=== PATIENT | male | born 1970 | race Caucasian/White ===

== ENCOUNTER 2018-09-23 21:37 | Emergency (ER) | payer MEDICAID, MEDICARE, OTHER ==
[~2018-09-23] VITALS: Ht 175.3 cm; Wt 78.9 kg
[2018-09-23] MEDS ORDERED: NS 1000ML 1,000 ML STA (21:46)
--- NOTE | 2018-09-23 21:47 | ER.PDOC ---
General Chief Complaint: Requesting Medical Care Stated Complaint: MANIC TRAVEL OUT OF US: No Time seen by MD: 21:34 Source: patient, EMS Exam Limitations: intoxication History of Present Illness Initial Comments 48 YO MALE BROUGHT IN BY EMS STATING HE HAS BIPOLAR DISORDER AND HAS NOT TAKEN KLONOPIN FOR SEVERAL MONTHS. HE STATES DRINKING 7 BOTTLES OF BEAR TODAY. HE DENIES DRUG USE. PATIENT DENIES CHEST PAIN, ABDOMINAL PAIN, SHORTNESS OF BREATH, HEADACHE. HE DENIES SUICIDAL OR HOMICIDAL IDEATION. PATIENT IS HOMELESS. PATIENT DENIES HALLUCINATION AND HE IS NOT AGITATED. Timing/Duration: 4-6 hours Severity: moderate Associated Symptoms: denies symptoms Allergies: Coded Allergies: Sulfa (Sulfonamide Antibiotics) (Verified Allergy, Unknown, 09/23/18) Past Medical History Medical History: other (BIPOLAR DISORDER) Surgical History: no surgical history Family History Significant Family History: no pertinent family hx Social History Smoking: cigarettes Alcohol Use: heavy Drug Use: none Review of Systems Constitutional: denies chills, denies fever EENTM: denies blurred vision Respiratory: denies cough, denies shortness of breath Cardiovascular: denies palpitations Gastrointestinal: denies diarrhea, denies nausea Genitourinary: denies dysuria, denies hematuria Musculoskeletal: denies back pain Skin: denies change in color Psychiatric/Neurological: denies anxiety, denies headache, denies tremors Hematologic/Lymphatic: no symptoms reported Immunological/Allergic: no symptoms reported Physical Exam General Appearance: Other (SMELL OF ALCOHOL, CONSCIOUS AND ALERT.) EENT: eyes nml inspection, nml ENT inspection Neck: Non-Tender, Full Range of Motion, Supple Respiratory: chest non-tender, lungs clear, normal breath sounds, no respiratory distress CVS: reg rate & rhythm, no murmur Gastrointestinal: Normal Bowel Sounds, No Organomegaly, No Pulsatile Mass, Non Tender, Soft Back: Normal Inspection, No CVA Tenderness Extremities: Normal Range of Motion Neurologic/Psychiatric: Alert, Oriented x 3, Other (SMELL OF ALCOHOL) Skin: Normal Color Results/Orders Results/Orders Orders - MIGDALIA COSTA MD Ekg-Routine (09/23/18 21:44) Cbc With Auto Diff (09/23/18 21:44) Comprehensive Metabolic Panel (09/23/18 21:44) Urinalysis (09/23/18 21:44) Ethanol (09/23/18 21:44) Drug Screen Medical(Ml) (09/23/18 21:44) 0.9 % Sodium Chloride (Ns 1000ml) (09/23/18 21:46) Vital Signs Date Time Temp Pulse Resp B/P (MAP) Pulse Ox O2 Delivery O2 Flow Rate FiO2 09/23/18 21:57 98.2 98.2 09/23/18 21:45 98.2 94 18 94 Room Air 98.2 09/23/18 21:45 94 18 Administered Medications Medications (Trade) Dose Ordered Sig/Dru Route PRN Reason Start Time Stop Time Status Last Admin Dose Admin Sodium Chloride 1,000 ml @ 0 mls/hr Q0M STAT IV 09/23/18 21:46 09/23/18 21:47 UNV 09/23/18 22:16 1,200 MLS/HR Laboratory Tests Test 09/23/18 00:00 09/23/18 22:05 Urine Collection Type VOID Urine Color COLORLESS (YELLOW) Urine Appearance CLEAR (CLEAR) Urine Bilirubin NEGATIVE MG/DL (NEGATIVE) Urine Ketones NEGATIVE (NEGATIVE) Urine Specific [place] 1.010 (1.005-1.035) Urine pH 6 (5.0-6.0) Urine Protein NEGATIVE (NEGATIVE) Urine Urobilinogen NORMAL (NEGATIVE) Urine Nitrate NEGATIVE (NEGATAIVE) Urine Leukocyte Esterase NEGATIVE (NEGATIVE) Urine Blood NEGATIVE (NEGATIVE) Urine Glucose NORMAL (NEGATIVE) Urine Opiates, Qualitative NEGATIVE ng/mL (CUT-OFF:300) Urine Methadone, Qualitative NEGATIVE ng/mL (CUT-OFF:300) Urine Amphetamine Qualitative NEGATIVE ng/mL (CUTOFF:1000) Urine Barbiturates, Qualitative NEGATIVE ng/mL (CUT-OFF:200) Urine Phencyclidine Screen NEGATIVE ng/mL (CUT-OFF:25) Urine MDMA (Ecstasy), Qualitative NEGATIVE ng/mL (CUT-OFF:300) Urine Benzodiazepines Screen NEGATIVE ng/mL (CUT-OFF:200) Urine Cocaine Qualitative NEGATIVE ng/mL (CUT-OFF:300) Ur Tetrahydrocannabinol (THC) Scrn NEGATIVE ng/mL (CUT-OFF:50) White Blood Count 7.0 10^3/uL (4.5-11.0) Red Blood Count 4.52 10^6/uL (4.50-5.90) Hemoglobin 13.4 g/dL (13.9-16.3) L Hematocrit 40.8 % (37.0-53.0) Mean Corpuscular Volume 90.3 fL (78-100) Mean Corpuscular Hemoglobin 29.6 pg (26-34) Mean Corpuscular Hemoglobin Concent 32.8 g/dL (33-37) L Red Cell Distribution Width 15.8 % (11.5-14.5) H Platelet Count 323 10^3/uL (150-400) Mean Platelet Volume 8.9 fL (7.8-11.0) Neutrophils (%) (Auto) 48.6 % (41.0-85.0) Lymphocytes (%) (Auto) 37.0 % (24.0-44.0) Monocytes (%) (Auto) 7.8 % (5.0-12.0) Neutrophils # (Auto) 3.4 10^3/uL (1.8-7.7) Lymphocytes # (Auto) 2.6 10^3/uL (1.0-4.8) Monocytes # (Auto) 0.5 10^3/uL (0.3-0.8) Absolute Immature Granulocyte (auto 0.03 10^3 u/L (0-2) Immature Granulocytes % 0.40 % (0.00-0.50) Eosinophils % 5.3 % (0.0-5.0) H Basophils % 0.9 % (0.0-0.2) H Basophils # 0.1 10^3/uL (0.0-0.1) Eosinophil Count 0.4 10^3/uL (0.0-0.2) H Sodium Level 144 mmol/L (132-145) Potassium Level 4.1 mmol/L (3.6-5.2) Chloride Level 110.0 mmol/L (96-109) H Carbon Dioxide Level 24.9 mmol/L (20.0-32) Anion Gap 13.2 Blood Urea Nitrogen 13 mg/dL (7-18) Creatinine 0.82 mg/dL (0.59-1.40) Estimated GFR () 120.8 (>/=60) BUN/Creatinine Ratio 15.0 Glucose Level 106 mg/dL (70-110) Calcium Level 9.1 mg/dL (8.4-10.5) Total Bilirubin 0.3 mg/dL (0.2-1.0) Aspartate Amino Transferase (AST) 54 U/L (0-35) H Alanine Aminotransferase (ALT) 63 U/L (12-78) Alkaline Phosphatase 74 U/L (50-136) Total Protein 7.2 g/dL (6.4-8.2) Albumin 3.8 g/dL (3.4-5.0) Globulin 3.4 Serum Alcohol 355 mg/dL (0-50) H Progress Progress HG 13.4, NORMAL WBC. URINE DRUG SCREEN NEGATIVE, URINALYSIS NEGATIVE FOR BLOOD OR INFECTION. ALCOHOL LEVEL 355.AST 54, CHLORIDE 110. PATIENT IS BEEN HYDRATED TO GET HIS ALCOHOL LEVEL DOWN. 1245- PATIENT ELOPED. HE HAD TOLD THE NURSE THAT HE WANTS TO LEAVE AND DOES NOT WANT THE IV FLUID ANYMORE EKG/XRAY/CT/US EKG: NSR (HEART RATE 89 BEATS/MIN) Departure Time of Disposition: 22:46 Disposition: 07 ELOPED Impression: Primary Impression: Alcohol intoxication Qualified Codes: F10.920 - Alcohol use, unspecified with intoxication, uncomplicated Condition: Eloped Duration or Time Spent with Pa: 45 MIN MIGDALIA COSTA MD Sep 23, 2018 21:47
--- NOTE | 2018-09-23 22:09 | PCM.EKG ---
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
[2018-09-23] MEDS ORDERED: NS 1000ML 1,000 ML ONE (22:10)
[2018-09-23 22:15] LABS: BASOPHIL # 0.1 10^3/uL (0.0-0.1); BASOPHIL % 0.9 % (0.0-0.2); EOSINOPHIL # 0.4 10^3/uL (0.0-0.2); EOSINOPHIL % 5.3 % (0.0-5.0); HEMOGLOBIN 13.4 g/dL (13.9-16.3); LYMPHOCYTES # 2.6 10^3/uL (1.0-4.8); MEAN CELL HGB 29.6 pg (26-34); MEAN CELL HGB CONCENTRATION 32.8 g/dL (33-37); MEAN CORP VOLUME 90.3 fL (78-100); MEAN PLATELET VOLUME 8.9 fL (7.8-11.0); MONOCYTES # 0.5 10^3/uL (0.3-0.8); MONOCYTES % 7.8 % (5.0-12.0); NEUTROPHIL # 3.4 10^3/uL (1.8-7.7); NEUTROPHILS % 48.6 % (41.0-85.0); RED CELL DISTRIBUTION WIDTH 15.8 % (11.5-14.5)
[2018-09-23 22:23] LABS: BILIRUBIN,URINE NEGATIVE (NEGATIVE); UROBILINOGEN,URINE NORMAL (NEGATIVE)
[2018-09-23 22:24] LABS: APPEARANCE,URINE CLEAR (CLEAR); UA COLOR COLORLESS (YELLOW)
[2018-09-23 22:40] LABS: CALCIUM 9.1 mg/dL (8.4-10.5); CARBON DIOXIDE 24.9 mmol/L (20.0-32)
--- NOTE | 2018-09-23 22:43 | NUR ---
Critical Lab Critical Lab called back from Lab, alcohol of 355 Alcohol level. Lab notified to Dr. Romeo
[2018-09-23 22:45] VITALS: BP 136/83
--- NOTE | 2018-09-23 22:46 | NUR ---
AMA PATIENT CAME TO NURSES STATION STATES HE IS LEAVING AND TOOK OUT HIS IV,NO BLEEDING NOTED. TRIED TO TALK WITH PATIENT TO STAY, STATES HE JUST WANTS TO GO. PATIENT STATES HE WILL WALK. PATIENT SIGNED AMA AND WALKED OUT.
--- NOTE | 2018-09-23 22:46 | NUR ---
UPDATE PATIENT CAOX4, VITALS STABLE, PATIENT COOPERATIVE JUST STATES HE DOESN'T WANT TO STAY ANYMORE. THE BENEFITS OF CONTINUED TREATMENT WAS EXPLAINED TO PATIENT WELL CONSEQUENCES INVOLVED AND RISK IF PATIENT DIDN'T STAY. PATIENT STILL WANTING TO LEAVE, PATIENT RESPONDING APPROPRIATELY. PATIENT LEFT ED, WAS TALKING TO SOMEONE IN PARKING LOT TO GET A RIDE.
--- NOTE | 2018-09-23 22:48 | NUR ---
FAMILIA DOWELL CALLED, SPOKE WITH HOMERO AT DISPATCH. EXPLAINED THAT WE HAD A PATIENT LEFT AGAINST MEDICAL ADVICE. HOMERO ADVISED THAT THEY RECEIVED A CALL THAT PATIENT WAS TALKING TO PEOPLE IN THE PARKING LOT TRYING TO GET A RIDE. ENROUTE TO HOSPITAL.
--- NOTE | 2018-09-23 22:58 | NUR ---
[facility] [facility] PATIENT WENT WITH [facility] [facility]
[2018-09-23 23:46] VITALS: BP 136/83
== END 2018-09-23 22:46 | disposition left against medical advice (07) ==
LOC: EDUNIT# 21:37 → ER 21:37 → EDBD 21:37 → ER 22:46
DX: F10.129 Alcohol abuse with intoxication, unspecified (principal); F31.9 Bipolar disorder, unspecified; F17.210 Nicotine dependence, cigarettes, uncomplicated; Z59.0 Homelessness; Z88.2 Allergy status to sulfonamides; Y90.8 Blood alcohol level of 240 mg/100 ml or more
CPT/HCPCS: 36415; 80053; 80307; 80320; 81002; 85025; 93005; 99285; J7030

== ENCOUNTER 2018-09-25 17:24 | Emergency (ER) | payer MEDICARE ==
[2018-09-25 17:25] VITALS: BP 152/95
[2018-09-25] MEDS ORDERED: ATIVAN PO STA (17:36)
--- NOTE | 2018-09-25 17:40 | ER.PDOC ---
General Chief Complaint: Medical Clearance Stated Complaint: PSYCH/ paranoid schizophrenia Time seen by MD: 18:00 Source: patient Exam Limitations: no limitations History of Present Illness Initial Comments out of psych meds for 1 month Timing/Duration: yesterday Intent: No prior thoughts of Severity: moderate Associated Symptoms: Paranoid Prior symptoms/Treatment: Similar symptoms previous Allergies: Coded Allergies: Sulfa (Sulfonamide Antibiotics) (Verified Allergy, Unknown, 09/23/18) Past Medical History Medical History: other Surgical History: no surgical history Social History Alcohol Use: heavy Drug Use: none Reviewed Nursing Reviewed: Vital Signs, Abn. Noted Review of Systems All Other Systems: Reviewed and Negative Physical Exam General Appearance: No acute distress, Alert EENT: No nystagmus, PERRLA, EOM's intact, NML ENT inspection, Pharynx nml, NML gag reflex Neck: Non-Tender, Full Range of Motion, Supple, Normal Inspection Respiratory: chest non-tender, lungs clear, normal breath sounds, no respiratory distress, no accessory muscle use Cardiovascular: Normal Peripheral Pulses, Regular Rate, Rhythm, No Edema, No Gallop, No JVD, No Murmur Gastrointestinal: Normal Bowel Sounds, No Organomegaly, No Pulsatile Mass, Non Tender, Soft Extremities: Non-Tender, Normal Range of Motion, No Evidence of Trauma, No Edema Neurological/Psychiatric: Alert, Normal Mood/Affect, Calm, sharepoint developer II-XII NML as Te sted, Oriented x 3 Appearance/Memory/Insight: Appropriate Appearance, Appropriate Insight, Neat, No Memory Impairment Behavior/Eye Contact/Speech: Cooperative, Good Eye Contact, Normal Speech Thoughts/Hallucinations: Normal Thought Pattern, No Apparent Hallucination Skin: Normal Color, Warm/Dry Results/Orders Results/Orders Orders - EVIE YEBOAH MD Cbc With Auto Diff (09/25/18 17:36) Comprehensive Metabolic Panel (09/25/18 17:36) Creatine Kinase (09/25/18 17:36) Troponin I (09/25/18 17:36) Urinalysis (09/25/18 17:36) Salicylate(Ml) (09/25/18 17:36) Acetaminophen(Ml) (09/25/18 17:36) Alcohol(Ml) (09/25/18 17:36) Hcg, Quantitative (09/25/18 17:36) Ekg-Routine (09/25/18 17:36) Drug Screen Medical(Ml) (09/25/18 17:36) Lorazepam (Ativan) (09/25/18 17:36) Lorazepam (Ativan) (09/25/18 18:23) Vital Signs Date Time Temp Pulse Resp B/P (MAP) Pulse Ox O2 Delivery O2 Flow Rate FiO2 09/25/18 17:31 98.5 107 18 96 Room Air 98.5 09/25/18 17:25 98.5 107 18 98.5 09/25/18 17:25 98.5 107 18 152/95 (114) 96 Room Air 98.5 09/23/18 23:46 208.8 79 09/23/18 22:45 98.2 Administered Medications Medications (Trade) Dose Ordered Sig/Dru Route PRN Reason Start Time Stop Time Status Last Admin Dose Admin Lorazepam (Ativan) 2 mg STAT STAT PO 09/25/18 17:36 09/25/18 17:39 DC 09/25/18 18:20 2 MG Laboratory Tests Test 09/25/18 17:46 White Blood Count 6.0 10^3/uL (4.5-11.0) Red Blood Count 4.31 10^6/uL (4.50-5.90) L Hemoglobin 12.6 g/dL (13.9-16.3) L Hematocrit 38.6 % (37.0-53.0) Mean Corpuscular Volume 89.6 fL (78-100) Mean Corpuscular Hemoglobin 29.2 pg (26-34) Mean Corpuscular Hemoglobin Concent 32.6 g/dL (33-37) L Red Cell Distribution Width 15.7 % (11.5-14.5) H Platelet Count 312 10^3/uL (150-400) Mean Platelet Volume 8.7 fL (7.8-11.0) Neutrophils (%) (Auto) 61.5 % (41.0-85.0) Lymphocytes (%) (Auto) 23.3 % (24.0-44.0) L Monocytes (%) (Auto) 13.2 % (5.0-12.0) H Neutrophils # (Auto) 3.7 10^3/uL (1.8-7.7) Lymphocytes # (Auto) 1.4 10^3/uL (1.0-4.8) Monocytes # (Auto) 0.8 10^3/uL (0.3-0.8) Absolute Immature Granulocyte (auto 0.01 10^3 u/L (0-2) Immature Granulocytes % 0.20 % (0.00-0.50) Eosinophils % 1.3 % (0.0-5.0) Basophils % 0.5 % (0.0-0.2) H Basophils # 0.0 10^3/uL (0.0-0.1) Eosinophil Count 0.1 10^3/uL (0.0-0.2) Sodium Level 144 mmol/L (132-145) Potassium Level 3.8 mmol/L (3.6-5.2) Chloride Level 104.0 mmol/L (96-109) Carbon Dioxide Level 27.5 mmol/L (20.0-32) Anion Gap 16.3 Blood Urea Nitrogen 9 mg/dL (7-18) Creatinine 0.95 mg/dL (0.59-1.40) Estimated GFR () 102.0 (>/=60) BUN/Creatinine Ratio 9.0 Glucose Level 107 mg/dL (70-110) Calcium Level 8.6 mg/dL (8.4-10.5) Total Bilirubin 0.5 mg/dL (0.2-1.0) Aspartate Amino Transferase (AST) 52 U/L (0-35) H Alanine Aminotransferase (ALT) 53 U/L (12-78) Alkaline Phosphatase 72 U/L (50-136) Total Creatine Kinase 821 U/L (39-308) *H Troponin I < 0.02 ng/mL (0.00-0.05) Total Protein 7.0 g/dL (6.4-8.2) Albumin 3.9 g/dL (3.4-5.0) Globulin 3.1 Human Chorionic Gonadotropin, Quant < 5 mIU/mL Salicylates Level < 2.8 mg/dL (2.8-20.0) L Acetaminophen Level < 10 ug/mL (10-30) L Serum Alcohol 99 mg/dL (0-50) H Departure Time of Disposition: 19:33 Disposition: 65 XFER TO PSYCH HOSP/UNIT Impression: Primary Impression: Paranoid schizophrenia Condition: Improved Referrals: PCP,UNKNOWN (PCP) PRIMARY CARE PROVIDER Duration or Time Spent with Pa: 30 m EVIE YEBOAH MD Sep 25, 2018 17:40
--- NOTE | 2018-09-25 17:49 | PCM.EKG ---
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
[2018-09-25 17:58] LABS: BASOPHIL % 0.5 % (0.0-0.2); EOSINOPHIL # 0.1 10^3/uL (0.0-0.2); EOSINOPHIL % 1.3 % (0.0-5.0); HEMOGLOBIN 12.6 g/dL (13.9-16.3); LYMPHOCYTES # 1.4 10^3/uL (1.0-4.8); LYMPHOCYTES % 23.3 % (24.0-44.0); MEAN CELL HGB 29.2 pg (26-34); MEAN CELL HGB CONCENTRATION 32.6 g/dL (33-37); MEAN CORP VOLUME 89.6 fL (78-100); MEAN PLATELET VOLUME 8.7 fL (7.8-11.0); MONOCYTES # 0.8 10^3/uL (0.3-0.8); MONOCYTES % 13.2 % (5.0-12.0); NEUTROPHIL # 3.7 10^3/uL (1.8-7.7); NEUTROPHILS % 61.5 % (41.0-85.0); RED CELL DISTRIBUTION WIDTH 15.7 % (11.5-14.5)
[2018-09-25] MEDS ORDERED: ATIVAN ONE (18:23)
[2018-09-25 18:26] LABS: ALANINE AMINOTRANSFERASE(ML) 53 U/L (12-78); ALKALINE PHOSPHATASE 72 U/L (50-136); ASPARTATE AMINO TRANSFERASE 52 U/L (0-35); CALCIUM 8.6 mg/dL (8.4-10.5); CARBON DIOXIDE 27.5 mmol/L (20.0-32); GLUCOSE 107 mg/dL (70-110)
--- NOTE | 2018-09-25 18:33 | NUR ---
CRITICAL LAB [facility]UE [facility] FROM LAB CALLED WITH CK 821. READ BACK, REPORTED TO EDP.
[2018-09-25 22:15] LABS: BILIRUBIN,URINE NEGATIVE (NEGATIVE); UROBILINOGEN,URINE NORMAL (NEGATIVE)
[2018-09-25 22:16] LABS: APPEARANCE,URINE CLEAR (CLEAR); UA COLOR YELLOW (YELLOW)
--- NOTE | 2018-09-25 22:37 | NUR ---
Crisis Line This nurse on phone with Crisis Line for [facility] interview
--- NOTE | 2018-09-25 22:55 | NUR ---
[facility] [place] from [facility] states that patient does not meet requirements to go to the [place]. Jael states that patient needs to follow up with [facility] outpatient unit on Friday.
[2018-09-25 23:15] VITALS: BP 148/91
[2018-09-26 03:15] VITALS: BP 148/91
== END 2018-09-25 23:29 ==
LOC: EDSEX 17:24 → ER 17:24 → EDBD 17:24 → ER 23:29
DX: F20.0 Paranoid schizophrenia (principal); Z79.899 Other long term (current) drug therapy; Z88.2 Allergy status to sulfonamides
CPT/HCPCS: 36415; 80053; 80299 ×2; 80307; 80349; 81002; 82550; 84484; 84702; 85025; 93005; 99285; G0480; 80320